=== PATIENT | female | born 1965 | race Two or more races ===

== ENCOUNTER 2019-03-07 08:26 | Emergency (ER) | payer SELFPAY ==
[~2019-03-07] VITALS: Ht 160 cm; Wt 66.7 kg
[2019-03-07 08:43] VITALS: BP 155/101
[2019-03-07] MEDS ORDERED: METHOCARBAMOL 500 MG TAB PO ONE (11:30)
[2019-03-07] MEDS ORDERED: IBUPROFEN 800 MG TAB PO ONE (11:30)
== END 2019-03-07 11:57 | disposition home or self-care (01) ==
LOC: ER 08:31
DX: M43.17 Spondylolisthesis, lumbosacral region (principal); M62.89 Other specified disorders of muscle; R51 Headache; H53.8 Other visual disturbances; F17.210 Nicotine dependence, cigarettes, uncomplicated
CPT/HCPCS: 72040; 72070; 72100

== ENCOUNTER 2019-08-07 17:45 | Emergency (ER) | payer SELFPAY ==
[~2019-08-07] VITALS: Ht 160 cm; Wt 66.2 kg
[2019-08-07 19:44] VITALS: BP 141/92
[2019-08-07] MEDS ORDERED: TETANUS-DIPTH-ACEL PERTUSSIS 0.5ML SYR Tdap IM ONE (19:45)
[2019-08-07] MEDS ORDERED: IBUPROFEN 800 MG TAB PO ONE (19:45)
== END 2019-08-07 20:11 | disposition home or self-care (01) ==
LOC: ER 17:45
DX: S60.361A Insect bite (nonvenomous) of right thumb, initial encounter (principal); X58.XXXA Exposure to other specified factors, initial encounter; Y93.89 Activity, other specified; Y92.89 Other specified places as the place of occurrence of the external cause; Y99.8 Other external cause status
CPT/HCPCS: 90471; 90715